=== PATIENT | female | born 1960 | race Caucasian/White ===

== ENCOUNTER 2020-01-31 15:27 | Outpatient (CLI) | payer BC, SELFPAY ==
--- NOTE | ~2020-01-31 | XR_ITS ---
EXAMINATION: XR knee LT min 4V DATE: 01/31/2020 15:47 INDICATION: Unspecified derangement of the left knee, left knee pain TECHNIQUE: Four views of the left knee were obtained. COMPARISON: None. FINDINGS: Alignment is normal. No fracture or osteochondral lesion. There is mild tricompartmental os teoarthritis characterized by tiny marginal osteophytes. No joint effusion/synovitis. Soft tissues a re unremarkable. IMPRESSION: 1. Mild osteoarthritis without acute osseous abnormality. Reviewed, dictated and finalized at location A.
== END 2020-01-31 15:28 | disposition home or self-care (01) ==
PROVIDERS: PCP Family Medicine; Visit Provider Family Medicine
DX: M17.12 Unilateral primary osteoarthritis, left knee (principal)
CPT/HCPCS: 73564

== ENCOUNTER → 2020-02-26 15:38 | Outpatient (CLI) | payer BC, SELFPAY ==
--- NOTE | ~2020-02-26 | MM_ITS ---
EXAMINATION: MM screening [facility] BI w loreta HISTORY: Screening mammogram TECHNIQUE: Craniocaudal and mediolateral oblique 3-D tomosynthesis images were obtained and synthetic 2-D images were generated. CAD analysis was submitted and interpreted. COMPARISON: Comparison to multiple prior studies sequentially, with oldest reviewed study dated 07/09. BREAST PARENCHYMAL COMPOSITION: There are scattered areas of fibroglandular density. FINDINGS: There is no evidence of suspicious mass, calcification, or architectural distortion to sugg est malignancy in either breast. There has been no suspicious interval change. IMPRESSION: 1. No mammographic evidence of malignancy. 2. Recommend routine screening mammography in one year. BI-RADS Category 1: Negative Reviewed, dictated and finalized at location A.
== END ==
PROVIDERS: PCP Family Medicine; Visit Provider Nurse Practitioner
DX: Z12.31 Encounter for screening mammogram for malignant neoplasm of breast (principal)
CPT/HCPCS: 77063; 77067

== ENCOUNTER 2020-06-12 16:51 | Outpatient (CLI) | payer BC, SELFPAY ==
--- NOTE | ~2020-06-12 | XR_ITS ---
EXAMINATION: XR abdomen obstructive series DATE: 06/12/2020 17:21 INDICATION: Left-sided abdominal pain. TECHNIQUE: Upright and supine views of the abdomen on 3 radiographs were obtained. COMPARISON: CT abdomen and pelvis 07/16/2012 FINDINGS: There are no dilated loops of bowel. There is a large volume of stool in the colon. No free intraperitoneal gas. Surgical clips in the right upper quadrant are likely from cholecystectomy. The re are numerous calcifications in the pelvis, likely phleboliths. IMPRESSION: 1. Nonobstructive bowel gas pattern. Reviewed, dictated and finalized at location A. L CAN INSPECTOR
== END 2020-06-12 16:52 | disposition home or self-care (01) ==
PROVIDERS: PCP Family Medicine; Visit Provider Family Medicine
DX: R10.9 Unspecified abdominal pain (principal)
CPT/HCPCS: 74019

== ENCOUNTER → 2020-10-14 02:17 | Outpatient (CLI) | payer OTHER, SELFPAY ==
[2020-10-14 22:46] LABS: SARS-CoV-2 RNA PCR Negative
== END ==
PROVIDERS: PCP Family Medicine; Visit Provider Internal Medicine Gastroenterology
DX: Z01.812 Encounter for preprocedural laboratory examination (principal); Z20.822 Contact with and (suspected) exposure to COVID-19
CPT/HCPCS: C9803; U0003; U0005

== ENCOUNTER 2020-10-17 01:15 | Day surgery (SDC) | payer OTHER, SELFPAY ==
[2020-10-07 11:59] VITALS: BMI 34.5
[2020-10-17 07:45] VITALS: BMI 33.3
[2020-10-17] MEDS: LACTATED RINGERS 1,000 ML 150 ML IV CONT (07:55)
--- NOTE | 2020-10-17 08:10 | WPDANESEPPF ---
Anes - Initial Pre Proc Eval Procedure: Operation Date: 10/17/20 09:00 Proposed Procedures p Colonoscopy - Emir Causey MD Date/Time: 10/17/20 08:10 Surgeon: Emir Causey MD Pre Op Diagnosis: slow transit constipation Patient Data Age: 60 Gender: F Height: 5 ft 7 in Weight: 96.4 kg Allergies Allergy/AdvReac Type Severity Reaction Status Date / Time cephalexin [From Keflex] Allergy Mild Unknown Verified 10/17/20 07:44 rosuvastatin Allergy Mild Rash Verified 10/17/20 07:44 Home Medications Medication Instructions Recorded Confirmed Type black cohosh 540 mg capsule 540 mg PO DAILY cap 01/31/20 10/07/20 History cholecalciferol (vitamin D3) 1,250 1,250 mcg PO 2XW cap 01/31/20 10/07/20 History mcg (50,000 unit) capsule cholecalciferol (vitamin D3) 125 125 mcg PO DAILY 01/31/20 10/07/20 History mcg (5,000 unit) capsule fluoxetine 40 mg capsule 40 mg PO DAILY 01/31/20 10/07/20 History royal jelly 1.73 m2 PO BID 05/01/20 06/24/20 History vitamin B complex 1 tablet PO DAILY 05/01/20 10/07/20 History docusate sodium 50 mg capsule 50 mg PO DAILY 08/22/20 10/07/20 History sodium,potassium,mag sulfates 17.5 See Rx Instructions PO .COMPLEX 09/18/20 Rx gram-3.13 gram-1.6 gram oral soln #354 ml Patient hx anesthesia problems: none Family hx anesthesia problems: none PMFSH Past Medical History Medical History Constipation by delayed colonic transit Degenerative joint disease of knee Depression Diverticulosis Elevated BP without diagnosis of hypertension Hot flashes due to menopause Knee pain MDD (major depressive disorder), recurrent episode, moderate Menopausal symptoms Mixed hyperlipidemia Seasonal allergies Sleep apnea Stomach pain Vision abnormalities Weight gain Surgical History Surgical History Hx laparoscopic cholecystectomy Hx of section Hx of hysterectomy Family History Family History Mother Breast cancer Other Arthritis Hypertension Social History Social History Social History: Smoking packs per day: 0.5 Smoking cigarettes per day: 10.0 Years smoked: 15 Smoking pack-years: 7.50 Smoking status: Current every day smoker Tobacco type: cigarettes Second hand tobacco smoke exposure: No Additional smoking assessment comments: quit for 15 years then restarted Alcohol intake: current Drinks per week: 2 Substance use: never Substance use type: does not use Living arrangements: with family Gender identity (if verbalized by the patient): Female Spiritual care concerns: No Anes - Eval Final PreProcedure Day of Procedure 10/17/20 08:10 Patient weight: obese Heart: regular rate and rhythm Lungs: decreased breath sounds Airway: Mallampati scale class II Neurological: alert and oriented Last oral intake: >/= 8 hours ASA classification: III Emergent: no Anesthetic plan: proceed Anesthesia type and monitoring: general GIVS and standard monitoring Informed Consent: The patient's anesthetic plan and its attendant risks and benefits were discussed with the patient/family/POA. Questions were solicited and answers provided to the satisfaction of the patient/family/POA.
--- NOTE | 2020-10-17 08:34 | PM.HPGS ---
History of Present Illness History of Present Illness Consent: Risks, benefits, and alternatives have been discussed and questions answered. Patient agrees to proceed with procedure. Chief complaint: slow transit constipation Narrative: Glenys Grimm is a 60 year old female here for screening colonoscopy, last one 10 years ago Review of Systems Constitutional: Constitutional: Denies headache(s) and Denies weakness Eyes: Eyes: Denies blurry vision ENT: Reports Normal hearing present, Denies headache(s) and Denies neck pain Cardiovascular: Cardiovascular: Denies chest pain and Denies dyspnea Respiratory: Respiratory: Denies dyspnea Gastrointestinal: Gastrointestinal: Reports no additional gastrointestinal complaints Genitourinary: Genitourinary: Denies dysuria Musculoskeletal: Musculoskeletal: Denies neck pain Integumentary/Breasts: Skin/Breast: Denies dry skin Neurologic: Reports Normal hearing present, Denies headache(s) and Denies weakness Psychiatric: Psychiatric: Denies anxiety Endocrine: Endocrine: Denies change in body appearance Hematologic/Lymphatic: Hematologic/Lymphatic: Denies easy bleeding Allergic/Immunologic: Allergic/Immunologic: Denies urticaria PMFSH Past Medical History Medical History Constipation by delayed colonic transit Degenerative joint disease of knee Depression Diverticulosis Elevated BP without diagnosis of hypertension Hot flashes due to menopause Knee pain MDD (major depressive disorder), recurrent episode, moderate Menopausal symptoms Mixed hyperlipidemia Seasonal allergies Sleep apnea Stomach pain Vision abnormalities Weight gain Surgical History Surgical History Hx laparoscopic cholecystectomy Hx of section Hx of hysterectomy Family History Family History Mother Breast cancer Other Arthritis Hypertension Social History Social History Social History: Smoking packs per day: 0.5 Smoking cigarettes per day: 10.0 Years smoked: 15 Smoking pack-years: 7.50 Smoking status: Current every day smoker Tobacco type: cigarettes Second hand tobacco smoke exposure: No Additional smoking assessment comments: quit for 15 years then restarted Alcohol intake: current Drinks per week: 2 Substance use: never Substance use type: does not use Living arrangements: with family Gender identity (if verbalized by the patient): Female Spiritual care concerns: No Meds Home Medications and Allergies Home Medications Medication Instructions Recorded Confirmed Type black cohosh 540 mg capsule 540 mg PO DAILY cap 01/31/20 10/07/20 History cholecalciferol (vitamin D3) 1,250 1,250 mcg PO 2XW cap 01/31/20 10/07/20 History mcg (50,000 unit) capsule cholecalciferol (vitamin D3) 125 125 mcg PO DAILY 01/31/20 10/07/20 History mcg (5,000 unit) capsule fluoxetine 40 mg capsule 40 mg PO DAILY 01/31/20 10/07/20 History royal jelly 1.73 m2 PO BID 05/01/20 06/24/20 History vitamin B complex 1 tablet PO DAILY 05/01/20 10/07/20 History docusate sodium 50 mg capsule 50 mg PO DAILY 08/22/20 10/07/20 History sodium,potassium,mag sulfates 17.5 See Rx Instructions PO .COMPLEX 09/18/20 Rx gram-3.13 gram-1.6 gram oral soln #354 ml Allergies Allergy/AdvReac Type Severity Reaction Status Date / Time cephalexin [From Keflex] Allergy Mild Unknown Verified 10/17/20 07:44 rosuvastatin Allergy Mild Rash Verified 10/17/20 07:44 Exam Const: General: comfortable and no acute distress HENMT: General nose exam: Normal nares present Eyes: General: appearance normal, both eyes and all related structures Neck: Neck: no JVD Resp: Auscultation: clear to auscultation bilaterally Cardio: Rate: regula
[2020-10-17 09:05] VITALS: BP 121/77; PULSE 69; RESP 20; O2SAT 97
[2020-10-17 09:15] VITALS: BP 131/80; PULSE 67; RESP 16; O2SAT 96
[2020-10-17 09:25] VITALS: BP 139/79; PULSE 66; RESP 20; O2SAT 97
== END 2020-10-17 09:35 | disposition home or self-care (01) ==
PROVIDERS: PCP Family Medicine; Visit Provider Internal Medicine Gastroenterology
PROC: 0DJD8ZZ Inspection of Lower Intestinal Tract, Via Natural or Artificial Opening Endoscopic (ICD-10-PCS; CPT 45378; principal; 2020-10-17 09:00)
DX: Z12.11 Encounter for screening for malignant neoplasm of colon (principal); K63.5 Polyp of colon; K57.30 Diverticulosis of large intestine without perforation or abscess without bleeding; K59.01 Slow transit constipation; E78.2 Mixed hyperlipidemia; G47.30 Sleep apnea, unspecified; F33.1 Major depressive disorder, recurrent, moderate; F17.210 Nicotine dependence, cigarettes, uncomplicated; E66.9 Obesity, unspecified; Z68.33 Body mass index [BMI] 33.0-33.9, adult
CPT/HCPCS: 45385; 88305; C9803; J2704; J7120; U0003; U0005

== ENCOUNTER → 2021-05-11 16:02 | Outpatient (CLI) | payer OTHER, SELFPAY ==
--- NOTE | ~2021-05-11 | MM_ITS ---
EXAMINATION: MM screening [facility] BI w loreta HISTORY: Screening mammogram, family history of breast cancer in her mother. TECHNIQUE: Craniocaudal and mediolateral oblique 3-D tomosynthesis images were obtained and synthetic 2-D images were generated. CAD analysis was submitted and interpreted. COMPARISON: 02/26/2020, 09/07/2018, 05/30/2017 BREAST PARENCHYMAL COMPOSITION: There are scattered areas of fibroglandular density. FINDINGS: There is no evidence of suspicious mass, calcification, or architectural distortion to sugg est malignancy in either breast. There has been no suspicious interval change. IMPRESSION: 1. No mammographic evidence of malignancy. 2. Recommend routine screening mammography in one year. BI-RADS Category 1: Negative Reviewed, dictated and finalized at location A.
== END ==
PROVIDERS: PCP Family Medicine; Visit Provider Nurse Practitioner
DX: Z12.31 Encounter for screening mammogram for malignant neoplasm of breast (principal)
CPT/HCPCS: 77063; 77067

== ENCOUNTER 2021-06-03 10:43 | Outpatient (CLI) | payer OTHER, SELFPAY ==
--- NOTE | ~2021-06-03 | XR_ITS ---
EXAMINATION: XR abdomen/kub 1V INDICATION: Constipation TECHNIQUE: Supine views of the abdomen were obtained on 2 radiographs. COMPARISON: 06/12/2020 FINDINGS: A moderate volume of colonic stool is present. Phleboliths are noted in the pelvis. There a re no dilated loops of bowel. Mild osteoarthritis is noted in the hips. IMPRESSION: 1. Constipation. Reviewed, dictated and finalized at location A. IMPRESSION: 1. Constipation.
== END 2021-06-03 10:44 | disposition home or self-care (01) ==
LOC: ANHIMG 10:47
PROVIDERS: PCP Family Medicine; Visit Provider Physician Assistant
DX: K59.00 Constipation, unspecified (principal)
CPT/HCPCS: 74018

== ENCOUNTER → 2021-06-29 18:02 | Outpatient (CLI) | payer OTHER, SELFPAY ==
--- NOTE | ~2021-06-29 | DEXA_ITS ---
Bone Density Report Name: NOHEMY BROWN Age: 60 Sex: Female Ethnicity: White Date of : 1960 Indication: postmenopausal; screening for osteoporosis; hysterectomy; Referring Provider: PRINCE, DEIDRE Study: Bone densitometry was performed. Exam Date: June 29, 2021 Accession number: [id number] Bone Density: Region BMD T-score Z-score Classification AP Spine (L1-L4) 1.242 1.8 3.2 Normal Femoral Neck (Left) 1.054 1.8 3.2 Normal Total Hip (Left) 1.238 2.4 3.4 Normal Femoral Neck (Right) 1.047 1.8 3.1 Normal Total Hip (Right) 1.166 1.8 2.8 Normal Total Hip Mean 1.202 2.1 3.1 Normal World Health Organization criteria for BMD impression classify patients as: Normal (T-score at or above -1.0), Osteopenia (T-score between -1.0 and -2.5), or Osteoporosis (T-score at or below -2.5). 10-year Fracture Risk: FRAX not reported because: All T-scores for Spine Total, Hip Total, Femoral Neck at or above -1.0 Previous Exams: Region Exam Age BMD T-score BMD Change BMD Change Date g/cm2 vs Baseline vs Previous AP Spine(L1-L4) 06/29/2021 60 1.242 1.8 0.068 0.017 05/30/2017 56 1.226 1.6 0.051 0.019 08/30/2012 51 1.207 1.5 0.033* 0.033* 06/09/2009 48 1.175 1.2 Total Hip(Left) 06/29/2021 60 1.238 2.4 0.050 -0.024 05/30/2017 56 1.263 2.6 0.074 0.025 08/30/2012 51 1.238 2.4 0.050* 0.050* 06/09/2009 48 1.188 2.0 Total Hip(Right) 06/29/2021 60 1.166 1.8 0.024 -0.022 05/30/2017 56 1.188 2.0 0.046 -0.026 08/30/2012 51 1.214 2.2 0.072* 0.072* 06/09/2009 48 1.141 1.6 *Denotes significance at 95% confidence level, LSC for AP Spine = 0.022 g/cm2, LSC for Total Hip = 0.027 g/cm2 Clinical Information Provided by Patient: Smokes Has used the following medications: Vitamin D Has the following medical conditions: Hysterectomy Patient maximum height was 67.0 Menopause Age: 32 No regular weight bearing exercise Drinks caffeinated beverages Onset of menses at age 12 Number of children 3 Missed period for more than 6 months in a row Impression: The patient has normal bone mass. The patient has risk factors, including: smoking. No significant bone loss was observed. Discussion: LOW RISK OF FRACTURE; BONE DENSITY IS
== END ==
PROVIDERS: PCP Family Medicine; Visit Provider Nurse Practitioner
DX: Z78.0 Asymptomatic menopausal state (principal)
CPT/HCPCS: 77080

== ENCOUNTER → 2022-08-16 12:23 | Outpatient (CLI) | payer OTHER, SELFPAY ==
--- NOTE | ~2022-08-16 | MM_ITS ---
EXAMINATION: MM screening [facility] BI w loreta HISTORY: Screening mammogram TECHNIQUE: Craniocaudal and mediolateral oblique 3-D tomosynthesis images were obtained and synthetic 2-D images were generated. CAD analysis was submitted and interpreted. COMPARISON: 05/2021, 02/26/2020, 09/07/2018 bilateral screening mammogram examinations BREAST PARENCHYMAL COMPOSITION: There are scattered areas of fibroglandular density. FINDINGS: There is no evidence of suspicious mass, calcification, or architectural distortion to sugg est malignancy in either breast. There has been no suspicious interval change. IMPRESSION: 1. No mammographic evidence of malignancy. 2. Recommend routine screening mammography in one year. BI-RADS Category 1: Negative Reviewed, dictated and finalized at location A. RPRISE SERVICES MANAGER
== END ==
PROVIDERS: PCP Family Medicine; Visit Provider Nurse Practitioner
DX: Z12.31 Encounter for screening mammogram for malignant neoplasm of breast (principal)
CPT/HCPCS: 77063; 77067

== ENCOUNTER → 2022-09-06 15:08 | Outpatient (CLI) | payer OTHER, SELFPAY ==
--- NOTE | ~2022-09-06 | US_ITS ---
EXAMINATION: US transvaginal DATE: 09/06/2022 15:41 INDICATION: Abdominal distention TECHNIQUE: Multiple endovaginal sonographic images of the pelvis were obtained. COMPARISON: CT, 07/16/2023 FINDINGS: The uterus is surgically absent. The left ovary is not visualized however no left adnexal a bnormality is seen. The right ovary measures 3.9 x 2.2 x 3.3 cm. There is a 3.0 x 2.0 x 2.9 cm cystic mass of the right ovary without significant change since the comparison CT, consistent with a benign finding. There is normal vascular flow in the right ovary. There is no free fluid in the pelvis. IMPRESSION: 1. No sonographic correlate for the patient's symptoms. Reviewed, dictated and finalized at location B. VIORAL HEALTH DIRECTOR
== END ==
PROVIDERS: PCP Family Medicine; Visit Provider Obstetrics & Gynecology Gynecology
DX: R14.0 Abdominal distension (gaseous) (principal)
CPT/HCPCS: 76830

== ENCOUNTER 2023-11-04 13:37 | Outpatient (CLI) | payer BC, SELFPAY ==
[2023-11-04 14:34] LABS: Influenza A QL RT-PCR Negative (Negative); Influenza B QL RT-PCR Negative (Negative); RSV RNA, RT-PCR Negative (Negative); SARS-CoV-2 RNA PCR Negative (Negative)
== END 2023-11-04 13:38 | disposition home or self-care (01) ==
LOC: ANHLAB 13:38
PROVIDERS: PCP Family Medicine; Visit Provider Family Medicine
DX: J98.8 Other specified respiratory disorders (principal); B97.89 Other viral agents as the cause of diseases classified elsewhere; Z20.822 Contact with and (suspected) exposure to COVID-19
CPT/HCPCS: 87637

== ENCOUNTER 2023-12-28 15:09 | Outpatient (CLI) | payer BC, SELFPAY ==
--- NOTE | ~2023-12-28 | MM_ITS ---
EXAMINATION: MM screening [facility] BI w loreta HISTORY: Screening TECHNIQUE: Craniocaudal and mediolateral oblique 3-D tomosynthesis images were obtained and synthetic 2-D images were generated. CAD analysis was submitted and interpreted. COMPARISON: Comparison to multiple prior studies sequentially, with oldest reviewed study dated 05/09. BREAST PARENCHYMAL COMPOSITION: There are scattered areas of fibroglandular density. FINDINGS: There is no evidence of suspicious mass, calcification, or architectural distortion to sugg est malignancy in either breast. There has been no suspicious interval change. IMPRESSION: 1. No mammographic evidence of malignancy. 2. Recommend routine screening mammography in one year. BI-RADS Category 1: Negative Reviewed, dictated and finalized at location A.
== END 2023-12-28 15:10 ==
LOC: MICIMG 15:09
PROVIDERS: PCP Family Medicine; Visit Provider Nurse Practitioner
DX: Z12.31 Encounter for screening mammogram for malignant neoplasm of breast (principal)
CPT/HCPCS: 77063; 77067

== ENCOUNTER 2024-04-19 08:00 | Outpatient (RCR) | payer BC, SELFPAY ==
[2024-02-23 08:16] VITALS: BMI 35.7
[2024-02-23 09:53] VITALS: BMI 35.7
== END 2024-05-14 10:15 | disposition home or self-care (01) ==
LOC: ANHDMC 08:00
PROVIDERS: PCP Family Medicine; Visit Provider Physician Assistant
DX: E11.9 Type 2 diabetes mellitus without complications (principal); Z71.3 Dietary counseling and surveillance
CPT/HCPCS: 97802

== ENCOUNTER 2025-02-06 11:22 | Outpatient (CLI) | payer BC, SELFPAY ==
--- NOTE | ~2025-02-06 | MM_ITS ---
EXAMINATION: MM screening alia BI w loreta HISTORY: Screening mammogram, family history of breast cancer in her mother. TECHNIQUE: Craniocaudal and mediolateral oblique 3-D tomosynthesis images were obtained and synthetic 2-D images were generated. CAD analysis was submitted and interpreted. COMPARISON: 05/11/2021, 08/16/2022, 12/28/2023 BREAST PARENCHYMAL COMPOSITION:Not Dense. There are scattered areas of fibroglandular density. FINDINGS: No suspicious mass, calcification, or architectural distortion are identified in either shruti ast to suggest malignancy. There has been no suspicious interval change. IMPRESSION: No mammographic evidence of malignancy. Recommend routine screening mammography in one year. BI-RADS Category 1: Negative Reviewed, dictated and finalized at location .
== END 2025-02-06 11:23 | disposition home or self-care (01) ==
LOC: MICIMG 11:23
PROVIDERS: PCP Family Medicine; Visit Provider Nurse Practitioner
DX: Z12.31 Encounter for screening mammogram for malignant neoplasm of breast (principal)
CPT/HCPCS: 77063; 77067

== ENCOUNTER 2025-02-12 08:00 | Outpatient (CLI) | payer BC, SELFPAY ==
--- NOTE | ~2025-02-12 | DEXA_ITS ---
Bone Density Report Name: NOHEMY BROWN Age: 64 Sex: Female Ethnicity: White Date of : 1960 Indication: postmenopausal; screening for osteoporosis; prior fracture; hysterectomy; Referring Provider: PRINCE, DEIDRE Study: Bone densitometry was performed. Exam Date: February 12, 2025 Accession number: [id number] Bone Density: Region BMD T-score Z-score Classification AP Spine(L1-L4) 1.167 1.1 2.8 Normal Femoral Neck (Left) 1.017 1.5 3.0 Normal Total Hip (Left) 1.228 2.3 3.5 Normal Femoral Neck (Right) 1.026 1.6 3.1 Normal Total Hip (Right) 1.140 1.6 2.8 Normal Total Hip Mean 1.184 2.0 3.2 Normal World Health Organization criteria for BMD impression classify patients as: Normal (T-score at or above -1.0), Osteopenia (T-score between -1.0 and -2.5), or Osteoporosis (T-score at or below -2.5). 10-year Fracture Risk: FRAX not reported because: All T-scores for Spine Total, Hip Total, Femoral Neck at or above -1.0 Previous Exams: -- Region Exam Age BMD T-score BMD Change BMD Change Date g/cm2 vs Baseline vs Previous -- AP Spine (L1-L4) 02/12/2025 64 1.167 1.1 -0.6% -6.1%# 06/29/2021 60 1.242 1.8 5.8%# 1.4% 05/30/2017 56 1.226 1.6 4.3%# 1.5%# 08/30/2012 51 1.207 1.5 2.8%* 2.8%* 06/09/2009 48 1.175 1.2 Total Hip(Left) 02/12/2025 64 1.228 2.3 3.4%* -0.8%# 06/29/2021 60 1.238 2.4 4.2%# -1.9% 05/30/2017 56 1.263 2.6 6.3%# 2.0%# 08/30/2012 51 1.238 2.4 4.2%* 4.2%* 06/09/2009 48 1.188 2.0 Total Hip(Right) 02/12/2025 64 1.140 1.6 -0.1% -2.2%# 06/29/2021 60 1.166 1.8 2.1%# -1.9% 05/30/2017 56 1.188 2.0 4.1%# -2.1%# 08/30/2012 51 1.214 2.2 6.3%* 6.3%* 06/09/2009 48 1.141 1.6 -- *Denotes significance at 95% confidence level, LSC for AP Spine = 0.022 g/cm2, LSC for Total Hip = 0.027 g/cm2 # Denotes dissimilar scan types or analysis methods Clinical Information Provided by Patient: Has had a low trauma fracture Smokes Has used the following medications: Vitamin D, Calcium Has the following medical conditions: Hysterectomy Patient maximum height was 67 Menopause Age: 32 No regular weight bearing exercise Drinks caffeinated beverages Onset of menses at age 11 Number of children 1 Impression: The patient has normal bone mass. The patient has risk factors, including: smoking, previous fracture. Unable to evaluate interval change due to the use of different scan modes. Discussion: LOW RISK OF FRACTURE; BONE DENSITY IS WELL ABOVE THE MINIMUM DESIRABLE LEVEL AND ABOVE AVERAGE FOR AGE AND SEX AT ALL SKELETAL SITES TESTED. This person's bone density is above expected limits for age and sex. This is rarely clinically significant, but should be pursued if there are significant musculoskeletal complaints. The patient should follow a healthful lifestyle (good nutrition with adequate calcium and vitamin D, and appropriate weight-bearing exercise). Follow-Up: Consider repeating this study in 5 years or sooner if there is some new clinical indication. Reported by: RASHEL on 02/12/2025 8:16:00 AM. Reviewed, dictated and finalized at location A.
== END 2025-02-12 08:01 | disposition home or self-care (01) ==
LOC: MICIMG 08:01
PROVIDERS: PCP Family Medicine; Visit Provider Nurse Practitioner
DX: Z13.820 Encounter for screening for osteoporosis (principal); Z78.0 Asymptomatic menopausal state
CPT/HCPCS: 77080